=== PATIENT | female | born 1965 | race Caucasian/White ===

== ENCOUNTER 2022-10-14 09:35 | Emergency (ER) | payer OTHER, SELFPAY ==
[2022-10-14] VITALS (10 sets, daily range): BP systolic 122–164; BP diastolic 69–89; PULSE 63–94; RESP 16–24; TEMP 37; O2SAT 94–100; BMI 40.2
--- NOTE | 2022-10-14 09:53 | XR_ITS ---
The [address] [address] Patient Name: MOMO MCGOVERN MRN: [id number] date: 1965 Sex: F Assigned Patient Location: ER Current Patient Location: ER Accession/Order Number: [id number] Exam Date: 10/14/2022 10:15 Report Date: 10/14/2022 10:34 At the request of: LUIS PARIKH Procedure: XR chest 1V EXAMINATION: XR chest 1V HISTORY: dyspnea COMPARISON: 12/14/20 TECHNIQUE: ap port FINDINGS: LUNGS: No significant pulmonary parenchymal abnormalities. VASCULATURE: No increased pulmonary vasculature. PLEURA: No pneumothorax, effusion, or pleural thickening. CARDIAC: No cardiomegaly or cardiac silhouette abnormality. MEDIASTINUM: No visible mass or adenopathy. BONES: No fracture or visible bone lesion. OTHER: Negative. XR/XR chest 1V IMPRESSION: No acute disease. Electronically authenticated by: ANDI THAKKAR Date: 10/14/2022 10:34
--- NOTE | 2022-10-14 09:53 | ECG_ITS ---
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
--- NOTE | 2022-10-14 09:56 | ED.SOB1 ---
HPI - SOB/Dyspnea General Chief Complaint: Shortness of Breath/Dyspnea Stated Complaint: SHORTNESS OF BREATH/HARD TIME BREATHING Time Seen by Provider: 10/14/22 09:53 Source: patient Mode of arrival: Wheelchair Limitations: no limitations History of Present Illness HPI Narrative: this patient presents to emergency room complaining shortness of breath. She wears a CPAP mask at night cause a sleep apnea and she woke up in the middle night complaining shortness of breath. She had a sit up to breathe. She has smoked cigarettes proximal for many many years and believes that she probably has emphysema. She has no history of deep vein thrombosis or PE. She has not had purulent sputum. She's not had any fever shakes or chills or viral type symptomatology. She continues to use tobacco products and other household companions also use tobacco products as well. She had toe surgery recently she does not have any pain in her calves or thighs. Is not any chest pain or history of cardiac disease. Related Data Home Medications Medication Instructions Recorded Confirmed celecoxib 100 mg capsule 100 mg PO DAILY 10/14/22 10/14/22 cholecalciferol (vitamin D3) 25 125 mcg PO .3 times a week 10/14/22 10/14/22 mcg (1,000 unit) capsule (Vitamin D3) dapagliflozin propanediol 10 mg 10 mg PO QAM 10/14/22 10/14/22 tablet (Farxiga) doxepin 10 mg capsule 30 mg PO QPM 10/14/22 10/14/22 dulaglutide 0.75 mg/0.5 mL 0.75 mg subcut QWEEK 10/14/22 10/14/22 subcutaneous pen injector (Trulicity) losartan 50 mg-hydrochlorothiazide 1 tab PO DAILY 10/14/22 10/14/22 12.5 mg tablet (Hyzaar) melatonin 10 mg capsule 30 mg PO QPM 10/14/22 10/14/22 omeprazole 20 mg capsule,delayed 20 mg PO DAILY 10/14/22 10/14/22 release paroxetine HCl 40 mg tablet 40 mg PO DAILY 10/14/22 10/14/22 pregabalin 150 mg capsule (Lyrica) 150 mg PO TID 10/14/22 10/14/22 primidone 50 mg tablet 50 mg PO QPM 10/14/22 10/14/22 spironolactone 50 mg tablet 50 mg PO QAM 10/14/22 10/14/22 (Aldactone) tizanidine 4 mg capsule 4 mg PO BID PRN muscle spasticity 10/14/22 10/14/22 Allergies Allergy/AdvReac Type Severity Reaction Status Date / Time meloxicam Allergy Unknown Verified 10/14/22 09:50 [facility] Medical History (Updated 10/14/22 @ 11:55 by Roland Garzon MD) Surgical History (Updated 10/14/22 @ 10:28 by Marcela Bass) Social History Smoking status: Heavy tobacco smoker Exam Narrative Exam Narrative: This document has been composed with a new electronic medical record and [employer] voice recognition system. This document may not fully inaccurately reflect the entirety of the patient encounter.GENERAL: Well hydrated, appears well, No obvious distress, Awake, Alert, Oriented x 3, Cognition intact HEENT: Normocephalic, No evidence of trauma, injury or infection, airway intact. Conjuntiva normal, no pallor or scleral icterus NECK: Supple, no meningeal irritation, full ROM, non-tender, No JVD CHEST: Symmetrical, no injury, non-tender, RESP: patient had moderate dyspnea. She is able to complete sentences. She had audible wheezing. Her lungs show scattered rhonchi and wheezing throughout both sounds. There is no substantial emphysema. There is no stridor or evidence of upper airway obstruction. CARDIO: Normal rate and rhythm, No murmur, Rub, or ectopy during auscultation. ABD: Non-tender, normal BS, no guarding, rebound or rigidity. No pulsatile, masses. No organomegaly NEURO: Neuro at baseline, No motor deficits, CN 2-12 Normal, Mentation inctact. EXTREMITIES: No edema, good tissue perfusion, no venous cords, non-tender SKIN: No petechiae, purpura, or abnormal bruising, warm, dry, no rash Constitutional Vital Signs, click to edit/add: Last Vital Signs Temp 98.6 F 10/14/22 09:42 Pulse 88 10/14/22 11:36 Resp 18 10/14/22 11:36 BP 164/69 H 10/14/22 11:36 Pulse Ox 96 10/14/22 11:36 O2 Del Method Room Air 10/14/22 11:10 Course Vital Signs Vital signs: Vital Signs Temperature 98.6 F 10/14/22 09:42 Pulse Rate 94 H 10/14/22 09:42 Respiratory Rate 24 10/14/22 09:42 Blood Pressure 148/89 H 10/14/22 09:42 Pulse Oximetry 94 L 10/14/22 09:42 Oxygen Delivery Method Room Air 10/14/22 09:42 Temperature 98.6 F 10/14/22 09:42 Pulse Rate 88 10/14/22 11:36 Respiratory Rate 18 10/14/22 11:36 Blood Pressure 164/69 H 10/14/22 11:36 Pulse Oximetry 96 10/14/22 11:36 Oxygen Delivery Method Room Air 10/14/22 11:10 MDM - SOB/Dyspnea MDM Narrative Medical decision making narrative: patient was given DuoNeb and albuterol treatment. Was also given steroids. Her chest x-ray was negative, white count normal sputum was clear no evidence of deep vein thrombosis and her d-dimer and cardiac workup is negative. We've offered her admission but she thinks she'll do fine going home so we have arranged to get her a nebulizer machine. We'll place her on a steroid pack nebulizer machine with albuterol and antibiotic. She was advised to return should she have any difficulty she's accepting of these recommendations Lab Data Labs: Lab Results 10/14/22 Range/Units 10:03 WBC 8.9 (4.0-11.0) 10^3/uL RBC 4.73 (4.20-5.40) 10^6/uL Hgb 13.5 (12.0-16.0) g/dL Hct 41.7 (36.0-48.0) % MCV 88.2 (81.0-99.0) fL MCH 28.5 (26.7-34.0) pg MCHC 32.4 (29.9-35.2) g/dL RDW 15.5 H (11.0-15.0) % Plt Count 298 (150-450) 10^3/uL MPV 9.0 L (9.5-13.5) fL Neut % (Auto) 77.9 H (43.0-75.0) % Lymph % (Auto) 12.1 L (20.5-60.0) % [place] % (Auto) 8.6 (1.7-12.0) % Eos % (Auto) 0.8 L (0.9-7.0) % Baso % (Auto) 0.3 (0.2-2.0) % Neut # (Auto) 7.0 H (1.4-6.5) 10^3/uL Lymph # (Auto) 1.1 L (1.2-3.8) 10^3/uL [place] # (Auto) 0.8 (0.3-0.8) 10^3/uL Eos # (Auto) 0.1 (0.0-0.7) 10^3/uL Baso # (Auto) 0.0 (0.0-0.1) 10^3/uL Abs Immat Gran (auto) 0.03 (0.00-0.03) 10^3/uL Imm/Tot Granulo (auto) 0.3 (0.0-0.5) % D-Dimer 0.52 (<=0.59) mg/L FEU VBG pH 7.389 (7.330-7.430) VBG pCO2 48.2 (40.0-52.0) mmHg Sodium 130 L (136-145) mmol/L Potassium 4.2 (3.5-5.1) mmol/L Chloride 95 L (98-107) mmol/L Carbon Dioxide 30.0 (21.0-32.0) mmol/L Anion Gap 9.2 BUN 11.0 (7.0-18.0) mg/dL Creatinine 0.97 (0.55-1.02) mg/dL Est GFR ( Amer) >60 (>=60) Est GFR (Non-Af Amer) 59 L (>=60) BUN/Creatinine Ratio 11.3 Glucose 127 H (74-106) mg/dL Calcium 8.5 (8.5-10.1) mg/dL Total Bilirubin 0.3 (0.2-1.0) mg/dL AST 13 L (15-37) U/L ALT 17 (14-59) U/L Alkaline Phosphatase 167 H (46-116) U/L Troponin I High Sens 4.6 (4.0-51.3) pg/mL NT-Pro-B Natriuret Pep 46.0 (<=900.0) pg/mL Total Protein 7.1 (6.4-8.2) g/dL Albumin 3.4 (3.4-5.0) g/dL Globulin 3.7 g/dL Albumin/Globulin Ratio 0.9 Discharge Plan Discharge Chief Complaint: Shortness of Breath/Dyspnea Clinical Impression: Acute exacerbation of chronic obstructive pulmonary disease Patient Disposition: Home, Self-Care Time of Disposition Decision: 11:55 Prescriptions / Home Meds: No Action celecoxib 100 mg capsule 100 mg PO DAILY omeprazole 20 mg capsule,delayed release(DR/EC) 20 mg PO DAILY spironolactone [Aldactone] 50 mg tablet 50 mg PO QAM paroxetine HCl 40 mg tablet 40 mg PO DAILY Farxiga 10 mg tablet 10 mg PO QAM doxepin 10 mg capsule 30 mg PO QPM pregabalin [Lyrica] 150 mg capsule 150 mg PO TID losartan-hydrochlorothiazide [Hyzaar] 50-12.5 mg tablet 1 tab PO DAILY tizanidine 4 mg capsule 4 mg PO BID PRN (Reason: muscle spasticity) cholecalciferol (vitamin D3) [Vitamin D3] 25 mcg (1,000 unit) capsule 125 mcg PO .3 times a week melatonin 10 mg capsule 30 mg PO QPM primidone 50 mg tablet 50 mg PO QPM Rx Instructions: administer on days 4, 5, and 6 of therapy Trulicity 0.75 mg/0.5 mL pen injector 0.75 mg subcut QWEEK Instructions: COPD (Chronic Obstructive Pulmonary Disease) (ED) Additional Instructions: albuterol nebulizer every three hours today and then every 4-5 hours. Medrol Fabrice/Z-Fabrice Stand Alone Forms: Portal Instructions Referrals: Physician,Non-Staff, MD [Primary Care Provider] - 1 week
[2022-10-14] MEDS: METHYLPREDNISOLONE SOD SUCC PF 125 MG/2 ML VIAL IVP (10:02)
[2022-10-14 10:13] LABS: Basophils Percent Auto 0.3 % (0.2-2.0); Eosinophils Absolute Auto 0.1 10^3/uL (0.0-0.7); Eosinophils Percent Auto 0.8 % (0.9-7.0); Hematocrit 41.7 % (36.0-48.0); Hemoglobin 13.5 g/dL (12.0-16.0); Immature Granulocytes Abs Auto 0.03 10^3/uL (0.00-0.03); Immature Granulocytes Pct Auto 0.3 % (0.0-0.5); Lymphocytes Absolute Auto 1.1 10^3/uL (1.2-3.8); Lymphocytes Percent Auto 12.1 % (20.5-60.0); Mean Corpuscular HGB Conc 32.4 g/dL (29.9-35.2); Mean Corpuscular Hemoglobin 28.5 pg (26.7-34.0); Mean Corpuscular Volume 88.2 fL (81.0-99.0); Monocytes Absolute Auto 0.8 10^3/uL (0.3-0.8); Monocytes Percent Auto 8.6 % (1.7-12.0); Neutrophils Percent Auto 77.9 % (43.0-75.0); Platelet Count 298 10^3/uL (150-450); Red Blood Count 4.73 10^6/uL (4.20-5.40); Red Cell Distribution Width 15.5 % (11.0-15.0); White Blood Count 8.9 10^3/uL (4.0-11.0)
[2022-10-14 10:14] LABS: PCO2 VBG 48.2 mmHg (40.0-52.0); pH VBG 7.389 (7.330-7.430)
[2022-10-14] MEDS: IPRATROPIUM/ALBUTEROL SULFATE 3 ML AMPUL.NEB IH (10:18)
[2022-10-14 10:31] LABS: Alanine Aminotransferase 17 U/L (14-59); Albumin Globulin Ratio 0.9; Albumin Level 3.4 g/dL (3.4-5.0); Alkaline Phosphatase 167 U/L (46-116); Anion Gap 9.2; Aspartate Amino Transferase 13 U/L (15-37); BUN Creatinine Ratio 11.3; Bilirubin Total 0.3 mg/dL (0.2-1.0); Calcium 8.5 mg/dL (8.5-10.1); Chloride 95 mmol/L (98-107); Estimated GFR (African America >60 (>=60); Estimated GFR (Non-African Ame 59 (>=60); Globulin 3.7 g/dL; Glucose 127 mg/dL (74-106); Potassium 4.2 mmol/L (3.5-5.1); Sodium 130 mmol/L (136-145); Total Protein 7.1 g/dL (6.4-8.2)
[2022-10-14 10:33] LABS: D Dimer 0.52 mg/L FEU (<=0.59)
[2022-10-14 10:37] LABS: Troponin I High Sensitivity 4.6 pg/mL (4.0-51.3)
[2022-10-14] MEDS: ALBUTEROL SULFATE 2.5 MG/3 ML VIAL NEB IH (11:09)
== END 2022-10-14 12:20 | disposition home or self-care (01) ==
PROVIDERS: Emergency Provider Emergency Medicine Emergency Medical Services
DX: J44.1 Chronic obstructive pulmonary disease with (acute) exacerbation (principal); Z79.899 Other long term (current) drug therapy; Z79.85 Long-term (current) use of injectable non-insulin antidiabetic drugs; F17.210 Nicotine dependence, cigarettes, uncomplicated
CPT/HCPCS: 36415; 71045; 80053; 82800; 83880; 84484; 85025; 85378; 87040; 93005; 94640; 96374; 99285; J2930

== ENCOUNTER 2023-06-28 06:44 | Outpatient (OUT) | payer OTHER, SELFPAY ==
[2023-06-28 08:15] LABS: Creatinine Urine Random 76.54 mg/dL (20.00-300.00); Microalbum Creatinine Ratio Ur 16.9 mg/g (0.0-29.9); Microalbumin Urine Random <1.3 mg/dL (<=30.0)
[2023-06-28 08:16] LABS: Albumin Level 3.5 g/dL (3.4-5.0); Phosphorus 5.1 mg/dL (2.6-4.7)
[2023-06-29 11:09] LABS: C-Peptide, Serum 4.8 ng/mL (1.1-4.4)
== END 2023-06-28 06:45 | disposition home or self-care (01) ==
LOC: LAB 06:45
PROVIDERS: Visit Provider Internal Medicine
DX: E55.9 Vitamin D deficiency, unspecified (principal); E11.49 Type 2 diabetes mellitus with other diabetic neurological complication; Z71.3 Dietary counseling and surveillance
CPT/HCPCS: 36415; 80061; 80069; 82042; 82043; 82306; 82570; 84100; 84681

== ENCOUNTER 2023-06-28 06:47 | Outpatient (OUT) | payer OTHER, SELFPAY ==
[2023-06-28 08:09] LABS: Estimated Average Glucose 128 mg/dL; Glycohemoglobin A1C 6.1 % (4.5-6.2)
[2023-06-28 08:51] LABS: Alanine Aminotransferase 29 U/L (14-59); Albumin Globulin Ratio 1.1; Albumin Level 3.5 g/dL (3.4-5.0); Alkaline Phosphatase 139 U/L (46-116); Anion Gap 12.5; Aspartate Amino Transferase 12 U/L (15-37); BUN Creatinine Ratio 13.1; Bilirubin Total 0.3 mg/dL (0.2-1.0); Calcium 9.2 mg/dL (8.5-10.1); Carbon Dioxide 30.7 mmol/L (21.0-32.0); Chloride 100 mmol/L (98-107); Chol HDL Ratio 3.2; Cholesterol 167 mg/dL (<=200); Estimated GFR (African America >60 (>=60); Estimated GFR (Non-African Ame 52 (>=60); Globulin 3.3 g/dL; Glucose 112 mg/dL (74-106); HDL Cholesterol 53 mg/dL (40-60); LDL Cholesterol Calculated 100.2 mg/dL; Potassium 4.2 mmol/L (3.5-5.1); Sodium 139 mmol/L (136-145); Total Protein 6.8 g/dL (6.4-8.2); Triglycerides 69 mg/dL (<=150); VLDL CHOLESTEROL 13.8 mg/dL
== END 2023-06-28 06:48 | disposition home or self-care (01) ==
LOC: LAB 06:47
DX: E55.9 Vitamin D deficiency, unspecified (principal); E11.49 Type 2 diabetes mellitus with other diabetic neurological complication; Z71.3 Dietary counseling and surveillance; I10 Essential (primary) hypertension; E11.9 Type 2 diabetes mellitus without complications
CPT/HCPCS: 36415; 80053; 80061; 82042; 82043; 82306; 82570; 83036; 84100; 84681

== ENCOUNTER 2024-01-16 13:00 | Outpatient (OUT) | payer OTHER, SELFPAY ==
--- NOTE | 2024-01-16 13:04 | XR_ITS ---
[address] [address] Patient Name: MOMO MCGOVERN MRN: [id number] date: 1965 Sex: F Assigned Patient Location: [facility] Current Patient Location: Accession/Order Number: [id number] Exam Date: 01/16/2024 13:16 Report Date: 01/18/2024 06:34 At the request of: HANS BLACK Procedure: XR ankle RT min 3V PROCEDURE: XR ankle RT min 3V HISTORY: Right Ankle Pain COMPARISON: XR ankle right 09/30/2021 FINDINGS: BONES:No fracture, acute abnormality, or significant arthropathy. SOFT TISSUES:No visible soft tissue swelling. EFFUSION:None visible. OTHER: Negative. XR/XR ankle RT min 3V IMPRESSION: 1. No appreciable acute abnormality. Mild degenerative changes. Electronically authenticated by: SARINA MARINO Date: 01/18/2024 06:34
== END 2024-01-16 13:01 | disposition home or self-care (01) ==
LOC: RAD 13:00
PROVIDERS: Visit Provider Podiatrist Foot & Ankle Surgery
DX: M25.571 Pain in right ankle and joints of right foot (principal)
CPT/HCPCS: 73610

== ENCOUNTER 2024-01-31 10:47 | Outpatient (REF) | payer OTHER, SELFPAY ==
[2024-01-31 11:19] LABS: Vancomycin Trough 15.3 ug/mL (5.0-20.0)
== END 2024-01-31 10:48 | disposition home or self-care (01) ==
LOC: LAB 10:47
DX: L03.90 Cellulitis, unspecified (principal)
CPT/HCPCS: 36415; 80202

== ENCOUNTER 2024-02-05 09:49 | Outpatient (REF) | payer MEDICAID, SELFPAY ==
[2024-02-05 12:06] LABS: Basophils Absolute Auto 0.1 10^3/uL (0.0-0.1); Basophils Percent Auto 0.7 % (0.2-2.0); Eosinophils Absolute Auto 1.2 10^3/uL (0.0-0.7); Eosinophils Percent Auto 17.6 % (0.9-7.0); Hematocrit 32.2 % (36.0-48.0); Hemoglobin 9.8 g/dL (12.0-16.0); Immature Granulocytes Abs Auto 0.04 10^3/uL (0.00-0.03); Immature Granulocytes Pct Auto 0.6 % (0.0-0.5); Lymphocytes Absolute Auto 2.2 10^3/uL (1.2-3.8); Lymphocytes Percent Auto 31.2 % (20.5-60.0); Mean Corpuscular HGB Conc 30.4 g/dL (29.9-35.2); Mean Corpuscular Hemoglobin 27.8 pg (26.7-34.0); Mean Corpuscular Volume 91.2 fL (81.0-99.0); Mean Platelet Volume 10.3 fL (9.5-13.5); Monocytes Absolute Auto 0.7 10^3/uL (0.3-0.8); Monocytes Percent Auto 10.2 % (1.7-12.0); Neutrophils Absolute Auto 2.8 10^3/uL (1.4-6.5); Neutrophils Percent Auto 39.7 % (43.0-75.0); Platelet Count 340 10^3/uL (150-450); Red Blood Count 3.53 10^6/uL (4.20-5.40); Red Cell Distribution Width 16.2 % (11.0-15.0)
[2024-02-05 12:16] LABS: Anion Gap 9.9; BUN Creatinine Ratio 16.2; C Reactive Protein 4.81 mg/dL (<=0.50); Calcium 8.7 mg/dL (8.5-10.1); Carbon Dioxide 30.5 mmol/L (21.0-32.0); Chloride 103 mmol/L (98-107); Estimated GFR (African America >60 (>=60 mL/min/1.73m^2); Estimated GFR (Non-African Ame >60 (>=60 mL/min/1.73m^2); Glucose 102 mg/dL (74-106); Potassium 4.4 mmol/L (3.5-5.1); Sodium 139 mmol/L (136-145); Vancomycin Trough 21.1 ug/mL (5.0-20.0)
== END 2024-02-05 09:50 | disposition home or self-care (01) ==
LOC: LAB 09:49
DX: Z45.2 Encounter for adjustment and management of vascular access device (principal); L03.90 Cellulitis, unspecified
CPT/HCPCS: 36415; 80048; 80202; 85025; 86140

== ENCOUNTER 2024-02-12 09:12 | Outpatient (REF) | payer MEDICAID, OTHER, SELFPAY ==
[2024-02-12 09:56] LABS: Hematocrit 35.2 % (36.0-48.0); Hemoglobin 10.6 g/dL (12.0-16.0); Mean Corpuscular HGB Conc 30.1 g/dL (29.9-35.2); Mean Corpuscular Hemoglobin 27.2 pg (26.7-34.0); Mean Corpuscular Volume 90.3 fL (81.0-99.0); Platelet Count 334 10^3/uL (150-450); Red Cell Distribution Width 15.8 % (11.0-15.0); White Blood Count 9.9 10^3/uL (4.0-11.0)
[2024-02-12 10:01] LABS: BUN Creatinine Ratio 11.3; Calcium 8.8 mg/dL (8.5-10.1); Carbon Dioxide 33.5 mmol/L (21.0-32.0); Chloride 100 mmol/L (98-107); Estimated GFR (African America >60 (>=60 mL/min/1.73m^2); Estimated GFR (Non-African Ame 59 (>=60 mL/min/1.73m^2); Glucose 120 mg/dL (74-106); Potassium 4.5 mmol/L (3.5-5.1); Sodium 139 mmol/L (136-145); Vancomycin Trough 15.6 ug/mL (5.0-20.0)
[2024-02-12 11:52] LABS: Basophils Abs Manual 0.09 10^3/uL (0.00-0.10); Eosinophils Absolute Manual 2.97 10^3/uL (0.00-0.70); Lymphocytes Absolute Manual 2.67 10^3/uL (1.20-3.80); Monocytes Absolute Manual 0.49 10^3/uL (0.30-0.80); Segmented Neut Absolute Manual 3.66 10^3/uL (1.4-6.5)
== END 2024-02-12 09:13 | disposition home or self-care (01) ==
LOC: LAB 09:12
DX: N39.0 Urinary tract infection, site not specified (principal); L03.116 Cellulitis of left lower limb; L03.90 Cellulitis, unspecified
CPT/HCPCS: 36415; 80048; 80202; 85007; 85027

== ENCOUNTER 2024-02-29 16:37 | Emergency (ER) | payer MEDICARE, MEDICAID, SELFPAY ==
[2024-02-29 16:50] VITALS: BP 123/63; PULSE 96; TEMP 36.7; O2SAT 95; BMI 41.9
--- NOTE | 2024-02-29 18:14 | PC.NURSE ---
Called for patient no answer
== END 2024-02-29 19:01 | disposition left against medical advice (07) ==
PROVIDERS: Emergency Provider Emergency Medicine
DX: Z53.21 Procedure and treatment not carried out due to patient leaving prior to being seen by health care provider (principal)

== ENCOUNTER 2024-06-11 10:34 | Outpatient (OUT) | payer MEDICARE, MEDICAID, SELFPAY ==
--- NOTE | 2024-06-11 10:37 | MM_ITS ---
Patient Name: MOMO MCGOVERN MR#: [id number] : 1965 Exam Date: 06/11/2024 Ordering Doctor: Alin Taylor RADIOLOGY REPORT PROCEDURE: MM TOMOSYNTHESIS SCREENING BI COMPARISON: MG MAMM SCREEN 3D DAVID CAD, 04/14/2022. MG MAMM SCREEN 3D DAVID CAD, 06/30/2020. MG MAMM DX 3D LT CAD, 04/14/2015. INDICATIONS: Screening Calculator Name NCI Breast Cancer Risk Assessment Tool 5 Year Breast Cancer Risk Not Reported. Lifetime Breast Cancer Risk Not Reported. Personal Breast Cancer No Personal Ovarian Cancer No Treatments None Family Cancers None LOCATION: [facility] BREAST COMPOSITION: The breasts are almost entirely fatty. FINDINGS: DIAGNOSTIC CATEGORY 0--INCOMPLETE: NEED ADDITIONAL IMAGING EVALUATION. RIGHT BREAST: No significant suspicious finding. LEFT BREAST: Focal asymmetry upper outer quadrant left breast, middle depth. RECOMMENDATIONS: ADDITIONAL MAMMOGRAPHIC VIEWS REQUIRED: LEFT BREAST - spot-compression/true lateral views, possible ultrasound are recommended. PLEASE NOTE: A NORMAL MAMMOGRAM DOES NOT EXCLUDE THE POSSIBILITY OF BREAST CANCER. A CLINICALLY SUSPICIOUS PALPABLE LUMP SHOULD BE BIOPSIED. Dictated by: Jesus Ruvalcaba DO on 06/11/2024 at 16:07 Approved by: Jesus Ruvalcaba DO on 06/11/2024 at 16:10
== END 2024-06-11 10:35 | disposition home or self-care (01) ==
LOC: MAMMO 10:34
PROVIDERS: Visit Provider Family Medicine
DX: Z12.31 Encounter for screening mammogram for malignant neoplasm of breast (principal); R92.8 Other abnormal and inconclusive findings on diagnostic imaging of breast
CPT/HCPCS: 77063; 77067